=== PATIENT | male | born 1960 | race Caucasian/White ===

== ENCOUNTER 2016-11-21 06:11 | Day surgery (SDC) | payer MEDICARE ==
[~2016-11-21] VITALS: Ht 172.7 cm; Wt 71.7 kg
[2016-11-21] MEDS ORDERED: BUPIVACAINE/PF 0.5% ONE (07:02)
[2016-11-21] MEDS ORDERED: THROMBIN 5,000 UNIT VIAL TP ONE (07:02)
[2016-11-21] MEDS ORDERED: PROTAMINE SULFATE 10 MG/ML, 5ML ONE (07:02)
[2016-11-21] MEDS ORDERED: HEPARIN 1,000 UNITS/ML, 10ML ONE (07:02)
[2016-11-21 07:39] VITALS: BP 172/93
[2016-11-21] MEDS ORDERED: HYDRALAZINE PO (07:48)
[2016-11-21] MEDS ORDERED: SODIUM CHLORIDE 0.9% 1,000 ML IV SCH (07:51)
[2016-11-21] MEDS ORDERED: AMLO10TA2 PO (08:20)
[2016-11-21] MEDS ORDERED: ATOR80TA75 PO (08:20)
[2016-11-21] MEDS ORDERED: LOSA50TA6 PO (08:20)
[2016-11-21] MEDS ORDERED: SEVE800T8 PO (08:20)
[2016-11-21] MEDS ORDERED: ISOS60TA36 PO (08:20)
[2016-11-21] MEDS ORDERED: OMEP-110 PO (08:20)
[2016-11-21] MEDS ORDERED: CINA90TA PO (08:20)
[2016-11-21] MEDS ORDERED: CARV12.543 PO (08:20)
[2016-11-21] MEDS ORDERED: HYDR100T25 PO (08:20)
[2016-11-21] MEDS ORDERED: CLOP75TA22 PO (08:20)
[2016-11-21] MEDS ORDERED: ASPI-496 PO (08:20)
[2016-11-21] MEDS ORDERED: CLON0.3T47 PO (08:20)
[2016-11-21] MEDS ORDERED: FENTANYL PF 100 MCG/2ML IV PRN (09:00)
[2016-11-21] MEDS ORDERED: ONDANSETRON 2MG/ML, 2ML IVPush PRN (09:00)
[2016-11-21] MEDS ORDERED: OXYcodone 5 MG/5 ML ORAL.SOL UDC PO PRN (09:00)
[2016-11-21] MEDS ORDERED: LABETALOL 5MG/ML, 20ML IV PRN (09:00)
[2016-11-21] MEDS ORDERED: PROPOFOL 10 MG/ML, 20ML ONE (09:02)
[2016-11-21] MEDS ORDERED: EPHEDRINE 50 MG/ML, 1ML ONE (09:02)
[2016-11-21] MEDS ORDERED: GLYCOPYRROLATE 0.2MG/1ML ONE (09:02)
[2016-11-21] MEDS ORDERED: CEFAZOLIN 1,000 MG ONE (09:02)
[2016-11-21] MEDS ORDERED: FENTANYL PF 250 MCG/5ML ONE (09:05)
[2016-11-21] MEDS ORDERED: FENTANYL PF 100 MCG/2ML ONE (10:12)
[2016-11-21] MEDS ORDERED: OXYcodone 5 MG/5 ML ORAL.SOL UDC ONE (10:12)
== END 2016-11-21 12:10 | disposition home or self-care (01) ==
LOC: OUT 06:11
PROVIDERS: ATTEND Surgery Vascular Surgery
DX: T82.590A Other mechanical complication of surgically created arteriovenous fistula, initial encounter (principal); I12.0 Hypertensive chronic kidney disease with stage 5 chronic kidney disease or end stage renal disease; N18.6 End stage renal disease; Z99.2 Dependence on renal dialysis; I25.2 Old myocardial infarction; I25.10 Atherosclerotic heart disease of native coronary artery without angina pectoris; F17.210 Nicotine dependence, cigarettes, uncomplicated; Y83.2 Surgical operation with anastomosis, bypass or graft as the cause of abnormal reaction of the patient, or of later complication, without mention of misadventure at the time of the procedure
CPT/HCPCS: 36415; 36832; 80047; J0690; J1644; J2704; J3010; J7030; J2720; J3490